=== PATIENT | male | born 1985 | race Caucasian/White ===

== ENCOUNTER 2025-05-19 06:35 | Day surgery (SDC) | payer BC ==
[~2025-05-19 06:35] MED LIST: Sodium Chloride 0.9% 10 ML Syringe FLUSH PRN; Sodium Chloride 0.9% 10 ML Syringe FLUSH SCH
[2025-05-19] MEDS: Lactated Ringers 1,000 ML IV SCH (07:35)
[2025-05-19] MEDS ORDERED: Lidocaine 1% 4 ML ONE (07:51)
[2025-05-19] MEDS ORDERED: propofoL 500 MG/50 ML 50 ML ONE (07:51)
[2025-05-19] MEDS ORDERED: fentaNYL 100 MCG/2 ML SDV ONE (07:52)
== END 2025-05-19 08:58 | disposition home or self-care (01) ==
LOC: JD.SDS 06:35
PROVIDERS: ATTEND Surgery
DX: K57.31 Diverticulosis of large intestine without perforation or abscess with bleeding (principal); K25.9 Gastric ulcer, unspecified as acute or chronic, without hemorrhage or perforation; D64.9 Anemia, unspecified; R13.10 Dysphagia, unspecified; K59.00 Constipation, unspecified; F17.200 Nicotine dependence, unspecified, uncomplicated; Z88.0 Allergy status to penicillin; Z79.899 Other long term (current) drug therapy
CPT/HCPCS: 43239; 45378; J2003; J2704; J3010; J7120; 00813